=== PATIENT | male | born 1950 | race Caucasian/White ===

== ENCOUNTER 2022-04-12 14:47 | Emergency (ER) | payer SELFPAY | END 2022-04-12 16:47 | disposition home or self-care (01) | LOC: DL.ED 14:47 | DX: S70.02XA Contusion of left hip, initial encounter (principal); Z88.8 Allergy status to other drugs, medicaments and biological substances; Z79.82 Long term (current) use of aspirin; Z79.01 Long term (current) use of anticoagulants; Z79.899 Other long term (current) drug therapy; Z79.84 Long term (current) use of oral hypoglycemic drugs; W18.30XA Fall on same level, unspecified, initial encounter | CPT/HCPCS: 99283 ==

== ENCOUNTER 2022-10-14 22:09 | Emergency (ER) | payer SELFPAY | END 2022-10-14 23:07 | disposition home or self-care (01) | LOC: DL.ED 22:09 | DX: S42.295A Other nondisplaced fracture of upper end of left humerus, initial encounter for closed fracture (principal); I25.10 Atherosclerotic heart disease of native coronary artery without angina pectoris; I48.91 Unspecified atrial fibrillation; I50.9 Heart failure, unspecified; E78.00 Pure hypercholesterolemia, unspecified; E11.9 Type 2 diabetes mellitus without complications; Z88.6 Allergy status to analgesic agent; Z79.84 Long term (current) use of oral hypoglycemic drugs; Z79.82 Long term (current) use of aspirin; Z79.899 Other long term (current) drug therapy; W18.09XA Striking against other object with subsequent fall, initial encounter; Y93.01 Activity, walking, marching and hiking; Y92.000 Kitchen of unspecified non-institutional (private) residence as the place of occurrence of the external cause | CPT/HCPCS: 73030-LT; 99283; 99284 ==

== ENCOUNTER 2025-02-20 08:12 | Day surgery (SDC) | payer MEDICAID, OTHER ==
[2025-02-20] MEDS ORDERED: Midazolam 1 MG/ML 2 ML SDV IV ONE (08:13)
[2025-02-20] MEDS ORDERED: Sodium Chloride 0.9% 10 ML Syringe IV ONE (08:13)
[2025-02-20] MEDS ORDERED: Dexamethasone 4 MG/ML SDV IV ONE (08:13)
[2025-02-20] MEDS ORDERED: Ondansetron 4 MG/2 ML SDV IVPUSH PRN (08:30)
[2025-02-20] MEDS ORDERED: Apraclonidine 0.5% Ophth Soln 5 ML Bot EYELF SCH (08:30)
[2025-02-20] MEDS ORDERED: Diclofenac Sodium 0.1% Ophth Soln 5 ML Bottle EYELF SCH (08:30)
[2025-02-20] MEDS: Povidone-Iodine 5% Sterile Ophth Soln 30 ML Bottle EYELF ONE ×2 (08:50→09:24)
[2025-02-20] MEDS: Moxifloxacin 0.5% Ophth Soln 3 ML Bottle EYELF ONE (08:50)
[2025-02-20] MEDS: Timolol Maleate 0.5% Ophth Soln 5 ML Bottle EYELF ONE (08:52)
[2025-02-20] MEDS: Phenylephrine 10% Ophth Soln 5 ML Bot EYELF ONE (08:52)
[2025-02-20] MEDS: Cataract Ophth Solution EYELF ONE (08:53)
[2025-02-20] MEDS: Apraclonidine 0.5% Ophth Soln 5 ML Bot EYELF ONE ×2 (09:25→09:42)
[2025-02-20] MEDS: Dexamethasone/Neomycin/Polymyxin B Ophth Oint 3.5 GM Tube EYELF ONE ×2 (09:26→09:42)
[2025-02-20] MEDS: Diclofenac Sodium 0.1% Ophth Soln 5 ML Bottle EYELF ONE ×2 (09:26→09:42)
[2025-02-20] MEDS: Chondroitin/Hyaluronate Sodium Ophth Inj 0.5/0.55 ML Kit IOCULAR ONE (09:40)
[2025-02-20] MEDS: Acetylcholine 20 MG/2 ML Intraocular Inj Kit IOCULAR ONE (09:40)
[2025-02-20] MEDS ORDERED: Dexamethasone 4 MG/ML SDV ONE (10:50)
== END 2025-02-20 10:40 | disposition home or self-care (01) ==
LOC: DL.SDS 08:12
PROVIDERS: ATTEND Ophthalmology
DX: H25.813 Combined forms of age-related cataract, bilateral (principal); H40.1121 Primary open-angle glaucoma, left eye, mild stage; F17.210 Nicotine dependence, cigarettes, uncomplicated; Z79.899 Other long term (current) drug therapy
CPT/HCPCS: 66989; A9270; J1100; J2003; J2250; J3370; J3490; C1783; V2787-GY

== ENCOUNTER 2025-03-06 08:43 | Day surgery (SDC) | payer OTHER ==
[2025-03-06] MEDS ORDERED: Sodium Chloride 0.9% 10 ML Syringe IV ONE (08:44)
[2025-03-06] MEDS ORDERED: Dexamethasone 4 MG/ML SDV IV ONE (08:44)
[2025-03-06] MEDS ORDERED: Midazolam 1 MG/ML 2 ML SDV IV ONE (08:44)
[2025-03-06] MEDS ORDERED: Ondansetron 4 MG/2 ML SDV IVPUSH PRN (09:15)
[2025-03-06] MEDS: Sodium Chloride 0.9% 10 ML Syringe FLUSH PRN (09:33)
[2025-03-06] MEDS: Moxifloxacin 0.5% Ophth Soln 3 ML Bottle EYERT ONE (09:46)
[2025-03-06] MEDS: Povidone-Iodine 5% Sterile Ophth Soln 30 ML Bottle EYERT ONE ×2 (09:47→11:27)
[2025-03-06] MEDS: Timolol Maleate 0.5% Ophth Soln 5 ML Bottle EYERT ONE (09:48)
[2025-03-06] MEDS: Cataract Ophth Solution EYERT ONE (09:48)
[2025-03-06] MEDS: Phenylephrine 10% Ophth Soln 5 ML Bot EYERT ONE (09:48)
[2025-03-06] MEDS: Apraclonidine 0.5% Ophth Soln 5 ML Bot EYERT ONE (11:49)
[2025-03-06] MEDS: Dexamethasone/Neomycin/Polymyxin B Ophth Oint 3.5 GM Tube EYERT ONE (11:49)
[2025-03-06] MEDS: Diclofenac Sodium 0.1% Ophth Soln 5 ML Bottle EYERT ONE (11:49)
== END 2025-03-06 12:20 | disposition home or self-care (01) ==
LOC: DL.SDS 08:43
PROVIDERS: ATTEND Ophthalmology
DX: E11.36 Type 2 diabetes mellitus with diabetic cataract (principal); H25.811 Combined forms of age-related cataract, right eye; F17.210 Nicotine dependence, cigarettes, uncomplicated; Z79.84 Long term (current) use of oral hypoglycemic drugs; Z79.899 Other long term (current) drug therapy
CPT/HCPCS: 00142; 66982; 99100; A9270; J1100; J2003; J2250; J3373; J3490